=== PATIENT | female | born 1990 | race Caucasian/White ===

== ENCOUNTER → 2017-09-27 | Outpatient (CLI) | payer BC | LOC: OD 16:08 | PROVIDERS: ATTEND Obstetrics & Gynecology | DX: R07.0 Pain in throat (principal) | CPT/HCPCS: 87070; 87880 ==

== ENCOUNTER 2018-05-02 15:24 | Inpatient (IN) | payer MEDICAID ==
[2018-05-02 16:01] LABS: APPEARANCE,URINE CLOUDY; BILIRUBIN,URINE NEGATIVE (NEGATIVE); COLOR,URINE YELLOW; GLUCOSE, URINE NEGATIVE (NEGATIVE); KETONES,URINE NEGATIVE (NEGATIVE); LEUKOCYTE ESTERASE,URINE LARGE (NEGATIVE); NITRITE,URINE NEGATIVE (NEGATIVE); PROTEIN,URINE 100 mg/dL (NEGATIVE); URINE SPECIFIC GRAVITY 1.006; UROBILINOGEN,URINE NEGATIVE mg/dL (<2.0)
[2018-05-02 16:07] LABS: UR PRO/CREAT RATIO RESULT 4.1 mg/mg (0.0-0.2); URINE CREATININE 35.8 mg/dL (16-327); URINE PROTEIN 145.9 mg/dL (<12)
[2018-05-02 16:16] LABS: URINE AMPHETAMINES SCREEN NEGATIVE
[2018-05-02 16:21] LABS: URINE BARBITURATES SCREEN NEGATIVE; URINE BENZODIAZEPINES SCREEN NEGATIVE; URINE COCAINE SCREEN NEGATIVE; URINE MARIJUANA (THC) SCREEN NEGATIVE; URINE METHADONE SCREEN NEGATIVE; URINE PHENCYCLIDINE SCREEN NEGATIVE
[2018-05-02 16:24] LABS: ABSOLUTE LYMPHOCYTES (AUTO) 1.4 10^3/uL (0.5-4.7); ABSOLUTE MONOCYTES (AUTO) 0.6 10^3/uL (0.1-1.4); ABSOLUTE NEUT (AUTO) 5.5 10^3/uL (1.7-8.2); BASOPHILS % (AUTO) 0.4 % (0-2); EOSINOPHILS % (AUTO) 0.6 % (0-6); HEMOGLOBIN 11.6 g/dL (12.0-15.5); LYMPHOCYTES % (AUTO) 18.5 % (13-45); MEAN CORPUSCULAR HEMOGLOBIN 28.1 pg (27.0-33.4); MEAN CORPUSCULAR HGB CONC 33.1 g/dL (32.0-36.0); MEAN CORPUSCULAR VOLUME 85 fl (80-97); MONOCYTES % (AUTO) 7.8 % (3-13); PLATELET COUNT 171 10^3/uL (150-450); RED BLOOD COUNT 4.13 10^6/uL (3.72-5.28); RED CELL DISTRIBUTION WIDTH 16.1 % (11.5-14.0); SEGMENTED NEUTROPHILS % (AUTO) 72.7 % (42-78); TOTAL CELLS COUNTED % (AUTO) 100 %; WHITE BLOOD COUNT 7.6 10^3/uL (4.0-10.5)
[2018-05-02 16:39] LABS: ALANINE AMINOTRANSFERASE 29 U/L (9-52); ALBUMIN 3.1 g/dL (3.5-5.0); ALKALINE PHOSPHATASE 94 U/L (38-126); ANION GAP 11 (5-19); ASPARTATE AMINO TRANSFERASE 21 U/L (14-36); BILIRUBIN,DIRECT 0.2 mg/dL (0.0-0.4); BILIRUBIN,TOTAL 0.5 mg/dL (0.2-1.3); BLOOD UREA NITROGEN 12 mg/dL (7-20); CALCIUM 8.6 mg/dL (8.4-10.2); CARBON DIOXIDE 18 mmol/L (22-30); CHLORIDE 109 mmol/L (98-107); GLUCOSE 71 mg/dL (75-110); POTASSIUM 3.8 mmol/L (3.6-5.0); SODIUM 137.8 mmol/L (137-145)
--- NOTE | 2018-05-02 16:46 | Admission Physical ---
Datetime Report Generated by CPN: 05/02/2018 16:46 CURRENT ADMISSION Hx Assessment: The History has been Reviewed and is Current Chief Complaint Other: Pre-E Indication for Induction: PreEclampsia Admit Impression : Term, Intrauterine Admit Plan: Admit to Unit ALLERGIES Medication Allergies: No Medication Allergies: No Known Allergies (05/02/2018) Latex: No Latex Allergies OBSTETRICAL HISTORY EDC: 05/22/2018 00:00 : 3 Para: 2 Term: 2 Livin Gestational Diabetes: No Rh Sensitization: No Incompetent Cervix: No DREW: No Infertility: No ART Treatment: No Uterine Anomaly: No IUGR: No Hx Previous C/S: No Macrosomia: No Hx Loss/Stillborn: No PIH: No Hx : No Placenta Previa/Abruption: No Depression/PP Depression: No PTL/PROM: No Post Hemorrhage: No Current Procedures: Ultrasound; NST Obstetrical History Comments: G1: G2: G3: current SEE RECORDS Alcohol: No Marijuana : No Cocaine: No Other Illicit Drugs: No Cigarettes: Never Smoker. [id number] MEDICAL HISTORY Diabetes: No Blood Transfusion: No Pulmonary Disease (Asthma, TB): Yes Breast Disease: No Hypertension: No Encephalographer Surgery: No Heart Disease: No Hosp/Surgery: Yes Autoimmune Disorder: No Anesthetic Complications: No Kidney Disease: No Abnormal Pap Smear: No Neuro/Epilepsy: No Psychiatric Disorders: No Other Medical Diseases: No Hepatitis/Liver Disease: No Significant Family History: No Varicosities/Phlebitis: No Trauma/Violence : No Thyroid Dysfunction: No Medical History Comments: childhood asthma, foot surgery 2004 INFECTIOUS HISTORY Gonorrhea: No Genital Herpes: No Chlamydia: No Tuberculosis: No Syphilis: No Hepatitis: No HIV/AIDS Exposure: No Rash or Viral Illness: No HPV: No PHYSICAL EXAM General: Normal HEENT: Deferred Neurologic: Normal Thyroid: Normal Heart: Normal Lungs: Normal Breast: Normal Back: Normal Abdomen: Normal Genitourinary Exam: Normal Extremities: Deferred DTRs: Normal Pelvic Type: Adequate Physical Exam Comments: GBS +, , A Neg Vital Signs: Reviewed VAGINAL EXAM Dilatation: 4 Effacement: 70 Station: 0 MEMBRANES Membranes: Intact FETUS A Monitoring: External US FHR- Baseline: 30 Variability: Moderate 6-25bpm Accelerations: 15X15 Decelerations: None Admit Comment: Admit to LD after being seen in office and sent to LD for Pre-E W/U for proteinuria 2+ Denies headache, blurred vision, aymptomatic, no edema 37.1 weeks Cat 1 strip, no uc's, VE 3-470/vtx/0 Discussed POC, Induction, Mag Sulfate for Pre_E, pt voices understanding PLANS FOR LABOR AND DELIVERY Labor and Delivery: None Pain Management: None Feeding Preference: Breast Benefit of Breast Feed Discussed: Yes Circumcision: Yes INFORMED CONSENT Assignment: Albino Parra MD Signature: with User ID: [email or web address] : with User ID: [email or web address]
[2018-05-02] MEDS ORDERED: PENICILLIN G POTASSIUM 5,000,000 UNIT in DEXTROSE 5%-WATER 100 ML IV ONE (16:49)
[2018-05-02] MEDS ORDERED: OXYTOCIN/NORMAL SALINE 20 UNIT/1,000 ML RTUINJ IV PRN (16:52)
[2018-05-02] MEDS ORDERED: MAGNESIUM SULFATE 4 GM/100 ML RTUPB IV ONE ×2 (16:53→17:10)
[2018-05-02] MEDS ORDERED: MAGNESIUM SULFATE/D5W 1 GM/100 ML RTUPB IV PRN (16:55)
[2018-05-02] MEDS ORDERED: PENICILLIN G-K 5 MILLION UNIT VIAL ONE ×2 (17:11→21:56)
[2018-05-02] MEDS ORDERED: MAGNESIUM SULFATE 20 GM/500 ML RTUINJ IV ONE (17:11)
[2018-05-02] MEDS: RINGERS SOLUTION,LACTATED 1,000 ML IV PRN (17:33)
[2018-05-02] MEDS ORDERED: OXYTOCIN/NORMAL SALINE 20 UNIT/1,000 ML RTUINJ ONE (18:03)
[2018-05-02] MEDS: PENICILLIN G POTASSIUM 2,500,000 UNIT in DEXTROSE 5%-WATER 50 ML IV SCH (22:09)
[2018-05-02] MEDS ORDERED: MISOPROSTOL 0.2 MG TABLET ONE (23:56)
[2018-05-02] MEDS ORDERED: LIDOCAINE 1% INJ-PF (10 MG/ML) 30 ML SDV ONE (23:57)
[2018-05-02] MEDS ORDERED: OXYTOCIN/NORMAL SALINE 0 UNIT/0 ML RTUINJ ONE (23:57)
[2018-05-03] MEDS ORDERED: GLYCERIN/WITCH HAZEL LEAF 1 EACH MED..PAD TP PRN (00:29)
[2018-05-03] MEDS ORDERED: ZOLPIDEM TARTRATE 5 MG TABLET PO PRN (00:29)
[2018-05-03] MEDS ORDERED: PROMETHAZINE HCL 25 MG SUPP.RECT PR PRN (00:29)
[2018-05-03] MEDS ORDERED: MISOPROSTOL 0.2 MG TABLET PR PRN (00:29)
[2018-05-03] MEDS ORDERED: PROMETHAZINE HCL INJ 25 MG/1 ML VIAL IV PRN (00:29)
[2018-05-03] MEDS ORDERED: DIPH/PERTUSS(ACELL)/TETANUS VAC/PF 0.5 ML SYR (>=10YO) IM PRN (00:29)
[2018-05-03] MEDS ORDERED: DIPHENHYDRAMINE HCL 25 MG CAPSULE PO PRN (00:29)
[2018-05-03] MEDS ORDERED: NA PHOS,M-B/NA PHOS,DI-BA (ADULT) 133 ML ENEMA PR PRN (00:29)
[2018-05-03] MEDS ORDERED: OXYTOCIN/NORMAL SALINE 20 UNIT/1,000 ML RTUINJ IV PRN (00:29)
[2018-05-03] MEDS ORDERED: ACETAMINOPHEN WITH CODEINE #3 TABLET PO PRN ×2 (00:29)
[2018-05-03] MEDS ORDERED: ACETAMINOPHEN 650 MG SUPP.RECT PR PRN (00:29)
[2018-05-03] MEDS ORDERED: PSEUDOEPHEDRINE HCL 30 MG TABLET PO PRN (00:29)
[2018-05-03] MEDS ORDERED: MAGNESIUM HYDROXIDE SUSP 30 ML UDCUP PO PRN (00:29)
[2018-05-03] MEDS ORDERED: DIBUCAINE 1% OINTMENT 28 GM TP PRN (00:29)
[2018-05-03] MEDS ORDERED: BENZOCAINE/MENTHOL AEROSOL SPRAY 56 ML TOP PRN (00:29)
[2018-05-03] MEDS ORDERED: PROMETHAZINE HCL 25 MG TABLET PO PRN (00:29)
[2018-05-03] MEDS ORDERED: MEASLES,MUMPS&RUBELLA VACC/PF 0.5 ML VIAL SUBCUT PRN (00:29)
[2018-05-03] MEDS ORDERED: IBUPROFEN 800 MG TABLET ONE ×3 (00:59→14:09)
[2018-05-03] MEDS ORDERED: ACETAMINOPHEN WITH CODEINE #3 TABLET ONE (00:59)
[2018-05-03] MEDS: PENICILLIN G POTASSIUM 2,500,000 UNIT in DEXTROSE 5%-WATER 50 ML IV SCH (01:38)
--- NOTE | 2018-05-03 03:11 | Warning Signs in Babies ---
VOD Warning Signs Datetime Report Generated by [facility]: 05/03/2018 03:11 VOD#[id number] -Warning Signs in Babies: Viewed with Parent(s)/Family (05/03/2018 02:45:Tangela Edwards RN)
--- NOTE | 2018-05-03 03:35 | Delivery Summary ---
Del Sum A-C Datetime Report Generated by CPN: 05/03/2018 03:35 DELIVERY PERSONNEL DELIVERY PERSONNEL: [id number] Delivery Doctor:: Albino Parra MD Labor and Delivery Nurse:: Tangela Edwards RNsafety technician Nurse:: Sweta Dick RN Home Visits Nurse/OPHTHALMIC TECH: Frannie Grove, [employer]LECT[employer] MATERNAL INFORMATION Delivery Anesthesia: None Medications After Delivery: Pitocin Drip 20 Units/1000ml NSS; Cytotec 800mcg Per Rectum/Vagina Estimated Blood Loss (ml): 250 Maternal Complications: Other Complication Details: preeclampsia on Magnesium IV LABOR SUMMARY EDC: 05/22/2018 00:00 No. Babies in Womb: 1 Attempted: No Labor Anesthesia: None LABOR INFORMATION Reason for Induction: Pre-Eclampsia Onset of Labor: 05/02/2018 22:53 Complete Dilatation: 05/03/2018 00:07 Oxytocin: Induction Group B Beta Strep: positive Antibiotics # of Doses: 2 Antibiotics Time of Last Dose: 2208 Name of Antibiotic Given: Penicillin Steroids Given: None Reason Steroids Not Administered: Not Applicable MEMBRANES Membranes Rupture Method: Artificial Rupture of Membranes: 05/02/2018 22:03 Length of Rupture (hr): 2.12 Amniotic Fluid Color: Clear Amniotic Fluid Amount: Small Amniotic Fluid Odor: None STAGES OF LABOR Stage 1 hr: 1 Stage 1 min: 14 Stage 2 hr: 0 Stage 2 min: 3 Stage 3 hr: 0 Stage 3 min: 6 Total Time in Labor hr: 1 Total Time in Labor min: 23 VAGINAL DELIVERY Episiotomy: None Laceration #1: Perineal Laceration Extension #1: Second Degree Laceration #2: None Laceration Extension #2: N/A Laceration #3: None Laceration Extension #3: N/A Laceration Repair: Yes Laceration Repair Note: Laceration repaired in usual fashion with 3-0 chromic suture. Good hemostasis and spiritism of symmetry. Sponge Count Correct: Vaginal Sweep Performed Sharps Count Correct: Yes CSECTION DELIVERY Primary Indication: N/A Secondary Indication: N/A CSection Incidence: N/A Labor: N/A Elective: N/A CSection Incision: N/A BABY A INFORMATION Delivery Date/Time: 05/03/2018 00:10 Method of Delivery: Vaginal Born in Route : No : N/A Forceps: N/A Vacuum Extraction: N/A Shoulder Dystocia : No PRESENTATION/POSITION BABY A Presentation: Cephalic Cephalic Presentation: Vertex Breech Presentation: N/A PLACENTA INFORMATION BABY A Placenta Delivery Time : 05/03/2018 00:16 Placenta Method of Delivery: Spontaneous Placenta Status: Delivered SCORES BABY A Heart Rate 1 min: >100 bpm Resp Effort 1 min: Good Cry Reflex Irritability 1 min: Cough or Sneeze or Pulls Away Muscle Tone 1 min: Active Motion Color 1 min: Blue/Pale Resuscitation Effort 1 min: Tactile Stimulation SCORE 1 MIN: 8 Heart Rate 5 min: >100 bpm Resp Effort 5 min: Good Cry Reflex Irritability 5 min: Cough or Sneeze or Pulls Away Muscle Tone 5 min: Active Motion Color 5 min: Body Cod[place], Extremities Blue Resuscitation Effort 5 min: Tactile Stimulation SCORE 5 MIN: 9 INFORMATION BABY A Gestational Age at Delivery: 37.2 Gestational Status: Early Term- 37- 38.6 Weeks Outcome : Liveborn Condition : Stable Sex: Male IDENTIFICATION BABY A Verification Date/Time: 05/03/2018 00:20 ID Band Number: [id number] Mother's Name Verified: Yes Infant RN Verifying Infant: KAdeola Syedco, RN Additional Verifying Personnel: Shaji Dick, RN WEIGHT/LENGTH BABY A Infant Birthweight (gm): 2300 Weight (lb): 5 Infant Weight (oz): 1 Length (in): 18.50 Infant Length (cm): 46.99 CORD INFORMATION BABY A No. Cord Vessels: 3 Nuchal Cord : N/A Cord Blood Taken: Yes-For Eval (Mom's Blood Type - or O+) Suction: Mouth ASSESSMENT BABY A Infant Complications: None Physical Findings at Delivery: Within Normal Limits Physical Findings- Other: See full nursery stiff leg operator Infant Respirations: Appears Normal Skin to Skin: Yes Skin to Skin Time (min): 60 Histology Teacher/ALS Called : No Transferred To: Remains with Mother BABY B INFORMATION : N/A SIGNATURES Signature: with User ID: [email or web address]
[2018-05-03] MEDS ORDERED: MAGNESIUM SULFATE 20 GM/500 ML RTUINJ IV ONE ×2 (03:59→14:14)
[2018-05-03] MEDS ORDERED: FAMOTIDINE 20 MG TABLET PO PRN (07:44)
[2018-05-03] MEDS: IBUPROFEN 800 MG TABLET PO SCH ×2 (07:54→14:11)
[2018-05-03 08:27] LABS: ABSOLUTE LYMPHOCYTES (AUTO) 1.2 10^3/uL (0.5-4.7); ABSOLUTE MONOCYTES (AUTO) 0.5 10^3/uL (0.1-1.4); ABSOLUTE NEUT (AUTO) 8.5 10^3/uL (1.7-8.2); BASOPHILS % (AUTO) 0.1 % (0-2); EOSINOPHILS % (AUTO) 0.2 % (0-6); HEMATOCRIT 37.6 % (36.0-47.0); HEMOGLOBIN 12.5 g/dL (12.0-15.5); LYMPHOCYTES % (AUTO) 11.5 % (13-45); MEAN CORPUSCULAR HEMOGLOBIN 28.6 pg (27.0-33.4); MEAN CORPUSCULAR HGB CONC 33.3 g/dL (32.0-36.0); MEAN CORPUSCULAR VOLUME 86 fl (80-97); MONOCYTES % (AUTO) 4.8 % (3-13); PLATELET COUNT 179 10^3/uL (150-450); RED BLOOD COUNT 4.37 10^6/uL (3.72-5.28); SEGMENTED NEUTROPHILS % (AUTO) 83.4 % (42-78); TOTAL CELLS COUNTED % (AUTO) 100 %; WHITE BLOOD COUNT 10.2 10^3/uL (4.0-10.5)
[2018-05-03 08:45] LABS: ALANINE AMINOTRANSFERASE 24 U/L (9-52); ALBUMIN 3.1 g/dL (3.5-5.0); ALKALINE PHOSPHATASE 99 U/L (38-126); ANION GAP 9 (5-19); ASPARTATE AMINO TRANSFERASE 26 U/L (14-36); BILIRUBIN,DIRECT 0.2 mg/dL (0.0-0.4); BILIRUBIN,TOTAL 0.6 mg/dL (0.2-1.3); BLOOD UREA NITROGEN 6 mg/dL (7-20); CARBON DIOXIDE 22 mmol/L (22-30); CHLORIDE 105 mmol/L (98-107); GLUCOSE 77 mg/dL (75-110); POTASSIUM 4.2 mmol/L (3.6-5.0); SODIUM 136.2 mmol/L (137-145); URIC ACID 5.8 mg/dL (2.5-6.2)
[2018-05-03] MEDS ORDERED: PRENATAL VITAMIN W DHA CAPSULE PO ONE (09:59)
[2018-05-03] MEDS ORDERED: SENNOSIDES/DOCUSATE 8.6-50 MG 1 EACH TABLET ONE (09:59)
[2018-05-03] MEDS ORDERED: DOCUSATE SODIUM 100 MG CAPSULE ONE (10:00)
[2018-05-03] MEDS ORDERED: FAMOTIDINE 20 MG TABLET PO SCH (10:00)
[2018-05-03] MEDS ORDERED: FERROUS SULFATE 325 MG TABLET PO ONE (10:00)
[2018-05-03] MEDS: PRENATAL VITAMIN W DHA CAPSULE PO SCH (10:02)
[2018-05-03] MEDS: SENNOSIDES/DOCUSATE 8.6-50 MG 1 EACH TABLET PO SCH (10:02)
[2018-05-03] MEDS: DOCUSATE SODIUM 100 MG CAPSULE PO SCH (10:02)
[2018-05-03] MEDS: FERROUS SULFATE 325 MG TABLET PO SCH (10:02)
[2018-05-03] MEDS ORDERED: MAGNESIUM SULFATE 20 GM/500 ML RTUINJ IV PRN (12:12)
--- NOTE | 2018-05-03 12:33 | PDOC PROGRESS REPORT ---
Subjective Progress Note for:: 05/03/18 Subjective:: Pt states that she feels good. No headaches or vision changes. Some dizziness reported. has not amulated yet. Araya still in place. Pt denies N/V, F/C, CP or SOB. She states that her lochia is decreasing. Reason For Visit: Physical Exam - Physical Exam Vital Signs: Intake & Output 05/02/18 05/03/18 05/04/18 06:59 06:59 06:59 Intake Total 1650 Balance 1650 Weight 81 kg General appearance: PRESENT: no acute distress, cooperative, disheveled, hard of hearing, mild distress, morbidly obese, obese, severe distress, thin, well- developed, well-nourished, other Respiratory exam: PRESENT: accessory muscle use, chest wall tenderness, clear to auscultation mike, crackles, decreased breath sounds, prolonged expiratory phas, rales, retraction, rhonchi, stridor, symmetrical, tachypnea, unlabored, wheezes, other Cardiovascular exam: PRESENT: bradycardia, clicks, diastolic murmur, gallop, irregular rhythm, RRR, rubs, +S1, +S2, systolic murmur, tachycardia, other GI/Abdominal exam: PRESENT: ascites, diminished bowel sounds, distended, firm, guarding, hernia, hyperactive bowel sounds, hypoactive bowel sounds, mass, Jimenez's sign, normal bowel sounds, organolmegaly, rebound, rigid, soft, tenderness, other Gentrourinary exam: PRESENT: ecchymosis, erythema, lacerations, lesions, scrotal swelling, testicular tenderness, urethral discharge, indwelling catheter , other Extremities exam: ABSENT: calf tenderness, clubbing, full ROM, joint swelling, pedal edema, tenderness, +1 edema, +2 edema, other Neurological exam: PRESENT: alert, altered, awake, oriented to person, oriented to place, oriented to time, oriented to situation, reflexes normal, abnormal gait, ataxia, CN II-XII grossly intact, motor sensory deficit, normal gait, aphasic, other Result Laboratory Results: 05/03/18 08:02 05/03/18 08:02 05/02/18 05/02/18 05/02/18 15:35 16:05 16:05 WBC 7.6 RBC 4.13 Hgb 11.6 L Hct 35.0 L MCV 85 MCH 28.1 MCHC 33.1 RDW 16.1 H Plt Count 171 Seg Neutrophils % 72.7 Lymphocytes % 18.5 Monocytes % 7.8 Eosinophils % 0.6 Basophils % 0.4 Absolute Neutrophils 5.5 Absolute Lymphocytes 1.4 Absolute Monocytes 0.6 Absolute Eosinophils 0.0 Absolute Basophils 0.0 Sodium 137.8 Potassium 3.8 Chloride 109 H Carbon Dioxide 18 L Anion Gap 11 BUN 12 Creatinine 0.63 Est GFR ( Amer) > 60 Est GFR (Non-Af Amer) > 60 Glucose 71 L Uric Acid 6.0 Calcium 8.6 Magnesium Total Bilirubin 0.5 AST 21 ALT 29 Alkaline Phosphatase 94 Total Protein 6.0 L Albumin 3.1 L Urine Color YELLOW Urine Appearance CLOUDY Urine pH 6.0 Ur Specific [place] 1.006 Urine Protein 100 H Urine Glucose (UA) NEGATIVE Urine Ketones NEGATIVE Urine Blood NEGATIVE Urine Nitrite NEGATIVE Ur Leukocyte Esterase LARGE H Urine WBC (Auto) 37 Urine RBC (Auto) 4 Blood Type Antibody Screen 05/02/18 05/03/18 05/03/18 17:00 08:02 08:02 WBC 10.2 RBC 4.37 Hgb 12.5 Hct 37.6 MCV 86 MCH 28.6 MCHC 33.3 RDW 16.0 H Plt Count 179 Seg Neutrophils % 83.4 H Lymphocytes % 11.5 L Monocytes % 4.8 Eosinophils % 0.2 Basophils % 0.1 Absolute Neutrophils 8.5 H Absolute Lymphocytes 1.2 Absolute Monocytes 0.5 Absolute Eosinophils 0.0 Absolute Basophils 0.0 Sodium 136.2 L Potassium 4.2 Chloride 105 Carbon Dioxide 22 Anion Gap 9 BUN 6 L Creatinine 0.62 Est GFR ( Amer) > 60 Est GFR (Non-Af Amer) > 60 Glucose 77 Uric Acid 5.8 Calcium 7.0 L* Magnesium 6.8 H* Total Bilirubin 0.6 AST 26 ALT 24 Alkaline Phosphatase 99 Total Protein 6.0 L Albumin 3.1 L Urine Color Urine Appearance Urine pH Ur Specific [place] Urine Protein Urine Glucose (UA) Urine Ketones Urine Blood Urine Nitrite Ur Leukocyte Esterase Urine WBC (Auto) Urine RBC (Auto) Blood Type A NEGATIVE Antibody Screen NEGATIVE Assessment & Plan - Plan Summary Plan Summary: 1. Will discontinue Magnesium Sulfate at midnight. 2. Monitor BP--will start BP meds if BP becomes extremely elevated once she is ambulating 3. Continue PP care
[2018-05-03] MEDS: RINGERS SOLUTION,LACTATED 1,000 ML IV PRN (15:11)
[2018-05-04] MEDS: IBUPROFEN 800 MG TABLET PO SCH ×4 (01:34→22:42)
[2018-05-04] MEDS: DOCUSATE SODIUM 100 MG CAPSULE PO SCH ×3 (01:34→17:31)
[2018-05-04] MEDS: FERROUS SULFATE 325 MG TABLET PO SCH ×3 (01:34→17:31)
[2018-05-04 06:08] LABS: HEMATOCRIT 35.5 % (36.0-47.0); HEMOGLOBIN 12.1 g/dL (12.0-15.5); MEAN CORPUSCULAR HEMOGLOBIN 28.9 pg (27.0-33.4); MEAN CORPUSCULAR VOLUME 85 fl (80-97); PLATELET COUNT 178 10^3/uL (150-450); RED BLOOD COUNT 4.18 10^6/uL (3.72-5.28); RED CELL DISTRIBUTION WIDTH 16.2 % (11.5-14.0); WHITE BLOOD COUNT 8.2 10^3/uL (4.0-10.5)
--- NOTE | 2018-05-04 08:31 | PDOC PROGRESS REPORT ---
Subjective-OB Progress Note for:: 05/04/18 Subjective: Doing well, no c/o, feeling better of Mag Sulfate, voiding, Physical Exam (OB) Vital Signs: Temp Pulse Resp BP Pulse Ox 98.7 F 66 16 128/85 H 99 05/04/18 07:30 05/04/18 07:30 05/04/18 07:30 05/04/18 07:30 05/04/18 07:30 Intake & Output 05/03/18 05/04/18 05/05/18 06:59 06:59 06:59 Intake Total 2650 Balance 2650 Weight 81 kg - PIH/Pre-Eclampsia DTR's: 2 + Clonus: Negative Headache: Absent Epigastric Pain: No Visual Changes: No - Lochia Lochia Amount: Scant < 10 ml Lochia Color: Rubra/Red - Abdomen Description: Tender, Soft Hernia Present: No Fundal Description: Firm, Midline Fundal Height: 1/u - 2/u Objective-Diagnostic Laboratory: 05/04/18 05:50 05/03/18 08:02 05/03/18 05/03/18 05/04/18 08:02 17:20 05:50 WBC 8.2 RBC 4.18 Hgb 12.1 Hct 35.5 L MCV 85 MCH 28.9 MCHC 34.0 RDW 16.2 H Plt Count 178 Sodium 136.2 L Potassium 4.2 Chloride 105 Carbon Dioxide 22 Anion Gap 9 BUN 6 L Creatinine 0.62 Est GFR ( Amer) > 60 Est GFR (Non-Af Amer) > 60 Glucose 77 Uric Acid 5.8 Calcium 7.0 L* Magnesium 6.8 H* Total Bilirubin 0.6 AST 26 ALT 24 Alkaline Phosphatase 99 Total Protein 6.0 L Albumin 3.1 L Blood Type A NEGATIVE Assessment and Plan(PN) - Assessment and Plan (1) Normal vaginal delivery Is this a current diagnosis for this admission?: Yes (2) Pre-eclampsia Qualifiers: Trimester: third trimester Qualified Code(s): O14.93 - Unspecified pre- eclampsia, third trimester Is this a current diagnosis for this admission?: Yes - Time Spent with Patient Time with patient: Less than 15 minutes Medications reviewed and adjusted accordingly: Yes - Disposition Anticipated Discharge: Home Within: within 24 hours
[2018-05-04] MEDS: SENNOSIDES/DOCUSATE 8.6-50 MG 1 EACH TABLET PO SCH (10:51)
[2018-05-04] MEDS: PRENATAL VITAMIN W DHA CAPSULE PO SCH (10:52)
[2018-05-05] MEDS: IBUPROFEN 800 MG TABLET PO SCH (05:41)
--- NOTE | 2018-05-05 08:36 | PDOC PROGRESS REPORT ---
Subjective-OB Progress Note for:: 05/05/18 Subjective: Doing well, , ready to go home, no c/o, eating well, voiding Physical Exam (OB) Vital Signs: Temp Pulse Resp BP Pulse Ox 98.4 F 65 15 136/84 H 98 05/05/18 07:47 05/05/18 07:47 05/05/18 07:47 05/05/18 07:47 05/05/18 07:47 Intake & Output 05/04/18 05/05/18 05/06/18 06:59 06:59 06:59 Intake Total 800 Balance 800 - PIH/Pre-Eclampsia DTR's: 2 + Clonus: Negative Headache: Absent Epigastric Pain: No Visual Changes: No - Lochia Lochia Amount: Scant < 10 ml Lochia Color: Rubra/Red - Abdomen Description: Soft Hernia Present: No Fundal Description: Firm, Midline Fundal Height: u/u - u/2 Objective-Diagnostic Laboratory: 05/04/18 05:50 05/03/18 08:02 05/03/18 17:20 Blood Type A NEGATIVE Assessment and Plan(PN) - Assessment and Plan (1) Normal vaginal delivery Is this a current diagnosis for this admission?: Yes (2) Pre-eclampsia Qualifiers: Trimester: third trimester Qualified Code(s): O14.93 - Unspecified pre- eclampsia, third trimester Is this a current diagnosis for this admission?: Yes - Time Spent with Patient Time with patient: Less than 15 minutes Medications reviewed and adjusted accordingly: Yes - Disposition Anticipated Discharge: Home Within: Other - home today
--- NOTE | 2018-05-05 08:39 | PDOC DISCHARGE SUMMARY ---
Final Diagnosis Discharge Date: 05/05/18 - Final Diagnosis (1) Normal vaginal delivery Is this a current diagnosis for this admission?: Yes Discharge Data - Discharge Medication Home Medications: Vit Calc,Iron,Folic [ Vitamins] 1 tab PO DAILY 05/02/18 Gestational Age: 37 Reason(s) for Admission: Induction of Labor Admission Note: pre-eclampsia Procedures: NST, Ultrasound Intrapartum Procedure(s): Spontaneous Vaginal Delivery Complication(s): Laceration-Perineal Laceration-Degree: 2nd - Diagnosis Test Laboratory: Temp Pulse Resp BP Pulse Ox 98.4 F 65 15 136/84 H 98 05/05/18 07:47 05/05/18 07:47 05/05/18 07:47 05/05/18 07:47 05/05/18 07:47 05/02/18 05/02/18 05/03/18 15:35 16:05 08:02 RBC 4.13 4.37 Hgb 11.6 L 12.5 Hct 35.0 L 37.6 Urine Opiates Screen NEGATIVE 05/04/18 05:50 RBC 4.18 Hgb 12.1 Hct 35.5 L Urine Opiates Screen - Discharge information/Instructions Discharge Activity: No Lifting Over 10 Pounds, No Lifting/Push/Pulling, Pelvic Rest Discharge Diet: As Tolerated, Regular Disposition: HOME, SELF-CARE Follow up with: [facility] in: 3, Days - check BP, rev S&S to report
[2018-05-05] MEDS: DOCUSATE SODIUM 100 MG CAPSULE PO SCH (09:31)
[2018-05-05] MEDS: SENNOSIDES/DOCUSATE 8.6-50 MG 1 EACH TABLET PO SCH (09:31)
[2018-05-05] MEDS: FERROUS SULFATE 325 MG TABLET PO SCH (09:32)
[2018-05-05] MEDS: PRENATAL VITAMIN W DHA CAPSULE PO SCH (09:32)
[2018-05-05 11:52] VITALS: BP 134/87
== END 2018-05-05 13:45 | disposition home or self-care (01) | DRG 775 ==
LOC: LC 15:24 → LR 16:38 → 2S 05-04 01:20
PROVIDERS: ADMIT Obstetrics & Gynecology; ATTEND Obstetrics & Gynecology
PROC: 10907ZC Drainage of Amniotic Fluid, Therapeutic from Products of Conception, Via Natural or Artificial Opening (ICD-10-PCS; principal; 2018-05-03)
PROC: 10E0XZZ Delivery of Products of Conception, External Approach (ICD-10-PCS; 2018-05-03)
DX: O70.1 Second degree perineal laceration during delivery (principal); Z37.0 Single live birth; Z3A.31 31 weeks gestation of pregnancy; O14.94 Unspecified pre-eclampsia, complicating childbirth; O99.824 Streptococcus B carrier state complicating childbirth
CPT/HCPCS: 36415; 80053; 80307; 81001; 82570; 83615; 83735; 84156; 84550; 85025; 85027; 85461; 86592; 86850; 86900; 86901; 94760; J2540; J2590; J2790; J3475; J3490